=== PATIENT | male | born 1975 | race Caucasian/White ===

== ENCOUNTER 2020-04-18 11:21 | Emergency (ER) | payer SELFPAY ==
[2020-04-18] VITALS (13 sets, daily range): BP systolic 110–135; BP diastolic 66–80; PULSE 57–99; RESP 12–21; TEMP 36.9; O2SAT 96–100; BMI 20.7
--- NOTE | 2020-04-18 11:35 | ED_ITS ---
HPI - General Adult General Chief complaint: Arrhythmia/Palpitations Stated complaint: HEART PALPITATIONS,SHORTNESS OF BREATH Time Seen by Provider: 04/18/20 11:35 History of Present Illness HPI narrative: Otherwise healthy 44-year-old gentleman presents today with increasing palpitations dyspnea and diaphoresis. He states that he has had episodes of palpitations throughout the course of his life initially starting in high school. He has had no official workup for this. He is family history is significant for a father who had a cardiac arrest with subsequent pacer defibrillator. Currently he states he woke up this morning in his usual state of health when to work and while at work had recurrent episodes of heart pounding, palpitations dizziness dyspnea and states that he has never had an episode that is been so severe that lasted so long period He denies chest pain, vomiting, diarrhea, abdominal pain, weakness or neurologic findings, fever or cough. Related Data Previous Rx's Medication Instructions Recorded hydrocortisone 1 % topical ointment 1 applictn TOP BID-QID PRN #28 gram 03/12/18 metoprolol tartrate 25 mg PO BID #60 tab 04/18/20 Allergies Allergy/AdvReac Type Severity Reaction Status Date / Time No Known Drug Allergies Allergy Verified 09/11/19 10:40 Review of Systems Review of Systems Narrative: Remainder of review of systems including constitutional, ENT, cardiovascular, respiratory, GI, , musculoskeletal, skin, neurologic and psychiatric systems reviewed and are unremarkable except as noted in HPI. Patient History Social History Smoking Status: Never smoker alcohol intake: never Smoking Status: Never smoker Exam Narrative Exam Narrative: General: Healthy appearing, mildly anxious, pale but Able to give a complete and coherent history. Well-nourished well-developed HEENT: Moist mucous membranes, normal sclera with reactive pupils, Neck: No JVD, supple Respiratory: Lungs are clear to auscultation, no wheezing no rales no rhonchi. Full and symmetrical air movement Cardiac: Regular rate and rhythm no murmurs no bruits Abdomen: Soft nontender good bowel tones, no flank pain Skin: Warm and dry, no rashes Neurologic: Grossly neurologically intact with no obvious asymmetries or abnormalities Extremities: No trauma, well perfused Psych: Cooperative, appropriate insight and affect Initial Vital Signs Initial Vital Signs: Vital Signs Pulse Rate 99 H 08/24/20 11:25 Blood Pressure 135/80 04/18/20 11:25 Pulse Oximetry 100 04/18/20 11:25 Course Orders Ordered: ED Orders 04/18/20 11:24 EKG-12 Lead Routine 04/18/20 11:30 Complete Blood Count AUTO DIFF Stat Comprehensive Metabolic Panel Stat D Dimer Stat Magnesium Stat Troponin I Stat 04/18/20 12:54 CT angio chest PE protocol Stat Discontinued Medications Sodium Chloride (Normal Saline 0.9%) 1,000 mls @ 1,000 mls/hr IV BOLUS ONE Stop: 04/18/20 12:51 Last Admin: 04/18/20 12:43 Dose: 1,000 mls/hr Documented by: GEO Metoprolol Tartrate (Lopressor) 25 mg PO NOW ONE Stop: 04/18/20 12:56 Last Admin: 04/18/20 13:21 Dose: 25 mg Documented by: GEO Vital Signs Vital signs: Vital Signs - 8 hr 04/18/20 11:25 04/18/20 11:30 04/18/20 11:38 Temperature 98.4 F Pulse Rate 99 H 81 85 Respiratory Rate 12 14 Blood Pressure 135/80 135/80 Pulse Oximetry 100 100 100 04/18/20 12:00 04/18/20 12:30 04/18/20 12:47 Temperature Pulse Rate 77 69 72 Respiratory Rate 12 20 16 Blood Pressure 113/69 Pulse Oximetry 96 96 98 04/18/20 13:00 04/18/20 13:24 04/18/20 13:30 Temperature Pulse Rate 76 74 75 Respiratory Rate 21 Blood Pressure 116/69 120/72 129/78 Pulse Oximetry 97 99 99 04/18/20 14:00 04/18/20 14:30 04/18/20 15:00 Temperature Pulse Rate 63 57 L 59 L Respiratory Rate Blood Pressure 113/66 120/73 110/74 Pulse Oximetry 98 97 97 Medical Decision Making Medical Records Medical records reviewed: Yes I reviewed the patient's medical records. Lab Data Lab results reviewed: Yes I reviewed the patient's lab results. Result diagrams: 04/18/20 11:30 04/18/20 11:30 Labs: Lab Results 04/18/20 04/18/20 04/18/20 Range/Units 11:30 11:30 11:30 WBC 12.1 H (4.5-11.0) X10^3/uL RBC 4.87 (4.5-5.9) X10^6/uL Hgb 14.6 (13.5-17.5) g/dL Hct 42.9 (41-53) % MCV 88.0 (80-100) fL MCH 30.0 (26-34) PG MCHC 34.1 (30-36) % RDW 14.2 (11.6-14.8) % Plt Count 277 (150-400) X10^3/uL Neut % (Auto) 68.6 (50-75) % Lymph % (Auto) 20.7 L (25-40) % [place] % (Auto) 8.8 (3-14) % Eos % (Auto) 1.0 L (2-4) % Baso % (Auto) 0.9 (0-2) % Neut # (Auto) 8300 H (3950-0638) /uL Lymph # (Auto) 2500 (9561-2890) /uL [place] # (Auto) 1100 H (0-900) /uL Eos # (Auto) 100 (0-450) /uL Baso # (Auto) 100 (0-100) /uL D-Dimer 275 H (<230) ng/mL Sodium 140 (137-145) mmol/L Potassium 3.8 (3.4-5.1) mmol/L Chloride 108 H (98-107) mmol/L Carbon Dioxide 23 (22-32) mmol/L BUN 20 (9-20) mg/dL Creatinine 0.73 (0.66-1.25) mg/dL Estimated GFR > 60.0 (>60) mL/min BUN/Creatinine Ratio 27.4 H (6-22) Glucose 110 H (70-100) mg/dL Calcium 10.1 (8.4-10.2) mg/dL Magnesium 2.1 (1.6-2.3) mg/dL Total Bilirubin 0.5 (0.2-1.3) mg/dL AST 20 (17-59) IU/L ALT 8 (<50) IU/L Alkaline Phosphatase 45 (38-126) U/L Troponin I < 0.012 (0.01-0.034) ng/mL Total Protein 7.6 (6.3-8.2) g/dL Albumin 4.6 (3.5-5.0) g/dL Globulin 3.0 (1.7-4.1) g/dL Albumin/Globulin Ratio 1.5 (1.0-2.8) Urine Dip Bedside Urine Glucose Negative Bedside Urine Bilirubin - Negative Bedside Urine Ketone - Negative Urine Specific [place] 1.010 Bedside Urine Occult Blood - Negative Bedside Urine pH 8.0 Bedside Urine Protein - Negative Bedside Urine Urobilinogen - Negative Bedside Urine Nitrite - Negative Bedside Urine Leukocytes - Negative Esterase Point of care testing: Urine Dip Bedside Urine Glucose Negative Bedside Urine Bilirubin - Negative Bedside Urine Ketone - Negative Urine Specific [place] 1.010 Bedside Urine Occult Blood - Negative Bedside Urine pH 8.0 Bedside Urine Protein - Negative Bedside Urine Urobilinogen - Negative Bedside Urine Nitrite - Negative Bedside Urine Leukocytes - Negative Esterase Imaging Data CT scan - chest: Radiologist's Impression: IMPRESSION: No evidence for pulmonary embolism. Dictated by: Macey Zheng M.D. on 04/18/2020 at 13:23 ECG Data Attestation: I personally reviewed and interpreted this ECG as follows: Interpretation: Sinus rhythm at a rate of 86 with normal intervals and normal axis. No acute ischemic changes On telemetry monitoring he is having repeated 12-20 beat runs with the prolonged as needed interval but minimally changed R to R interval. He does describe increased palpitations sensation during this mild rhythm abnormality. 1pm case is reviewed with Cardiology, Dr. Marinelli. He has reviewed the EKGs and believes that this is dual minesh AV physiology and recommends beta-royal for symptomatic control and referral to EP cardiology for consideration of ablation. Remainder of labs are returning a slightly elevated D-dimer. Given the palpitations and tachycardia initially presenting, with shared decision making, will moved to CT PE study to rule out pulmonary embolism PE has been ruled out. His heart rate has calmed nicely after 25 mg of metoprolol Explained findings workup and the dual node AV physiology along with recommended follow-up when he has insurance and metoprolol 25 mg twice a day to control symptoms at this time. 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 This means that in addition to the usual way the top part of your heart communicates with the bottom part of your heart, there is also secondary ?back channel?. This is not a life-threatening rhythm. It can be disconcerting and certainly uncomfortable. Using metoprolol 25 mg morning and night as needed for the palpitations is a reasonable way to deal with the discomfort until your able to get in and talk to an screen printing paster (marketing services coordinator who specializes in electrical conduction of the heart). With the workup today we showed there was no evidence of infection, blood clot in your lungs, significant chest pathology, anemia or any type of acute heart attack or heart attack like syndrome. I hope you feel better Prescriptions: New metoprolol tartrate 25 mg tablet 25 mg PO BID Qty: 60 RF: 6 No Action hydrocortisone [Anti-Itch (HC)] 1 % ointment 1 applictn TOP BID-QID PRN (Reason: rash) Qty: 28 RF: 0
[2020-04-18 12:00] LABS: Add Manual Diff / Slide Review NO; Basophils Absolute Auto 100 /uL (0-100); Basophils Percent Auto 0.9 % (0-2); Eosinophils Absolute Auto 100 /uL (0-450); Hematocrit 42.9 % (41-53); Hemoglobin 14.6 g/dL (13.5-17.5); Lymphocytes Absolute Auto 2500 /uL (1100-4500); Lymphocytes Percent Auto 20.7 % (25-40); Mean Corpuscular HGB Conc 34.1 % (30-36); Monocytes Absolute Auto 1100 /uL (0-900); Monocytes Percent Auto 8.8 % (3-14); Neutrophils Absolute Auto 8300 /uL (1500-7000); Neutrophils Percent Auto 68.6 % (50-75); Platelet Count 277 X10^3/uL (150-400); Red Blood Cell Count 4.87 X10^6/uL (4.5-5.9); Red Cell Distribution Width 14.2 % (11.6-14.8); White Blood Cell Count 12.1 X10^3/uL (4.5-11.0)
[2020-04-18 12:06] LABS: Alanine Aminotransferase 8 IU/L (<50); Albumin 4.6 g/dL (3.5-5.0); Albumin Globulin Ratio 1.5 (1.0-2.8); Alkaline Phosphatase 45 U/L (38-126); Aspartate Aminotransferase 20 IU/L (17-59); BUN Creatinine Ratio 27.4 (6-22); Bilirubin Total 0.5 mg/dL (0.2-1.3); Blood Urea Nitrogen 20 mg/dL (9-20); Calcium 10.1 mg/dL (8.4-10.2); Carbon Dioxide 23 mmol/L (22-32); Chloride 108 mmol/L (98-107); Estimated Glomerular Filt Rate > 60.0 mL/min (>60); Glucose 110 mg/dL (70-100); HEMOLYSIS < 15 (0-50); Magnesium 2.1 mg/dL (1.6-2.3); Potassium 3.8 mmol/L (3.4-5.1); Sodium 140 mmol/L (137-145); Total Protein 7.6 g/dL (6.3-8.2)
[2020-04-18 12:10] LABS: D Dimer 275 ng/mL (<230)
[2020-04-18 12:17] LABS: Troponin I < 0.012 ng/mL (0.01-0.034)
[2020-04-18] MEDS: SODIUM CHLORIDE 0.9% 1,000 ML 1000 ML IV (12:43)
--- NOTE | 2020-04-18 12:54 | DI.CT.S_ITS ---
PROCEDURE: CT ANGIO CHEST PE PROTOCOL INDICATIONS: Elevated D-dimer, palpitations, tachycardia TECHNIQUE: After the administration of intravenous contrast, 2 mm thick sections acquired from the pulmonary apices to the posterior costophrenic angles. 3-dimensional maximum intensity projection (MIP) coronal and sagittal reformats were then acquired through the thorax. For radiation dose reduction, the following was used: automated exposure control, adjustment of mA and/or kV according to patient size. COMPARISON: None. FINDINGS: Image quality: Excellent. Pulmonary arteries: Pulmonary arteries are normal in size, and demonstrate no intraluminal filling defects to suggest central pulmonary embolism. Lungs and pleura: Lungs are clear. No pleural effusions or pneumothorax. Central and peripheral airways are patent. Mediastinum: Heart size is normal, without pericardial effusion. No mediastinal or hilar adenopathy. Thoracic aorta is normal in caliber and enhancement. Esophagus is normal in caliber, without hiatal hernia. Bones and chest wall: No suspicious bony lesions. Ribs and thoracic spine appear intact throughout. Thyroid gland is normal. No axillary or supraclavicular adenopathy. Abdomen: Visualized upper abdominal solid organs appear normal in the early arterial phase of enhancement. IMPRESSION: No evidence for pulmonary embolism. Dictated by: Macey Zheng M.D. on 04/18/2020 at 13:23 Approved by: Macey Zheng M.D. on 04/18/2020 at 13:33
[2020-04-18] MEDS: METOPROLOL IR 25 MG TABLET PO (13:21)
== END 2020-04-18 16:08 | disposition home or self-care (01) ==
PROVIDERS: Emergency Provider Emergency Medicine
DX: R00.2 Palpitations (principal); R06.00 Dyspnea, unspecified; R79.89 Other specified abnormal findings of blood chemistry
CPT/HCPCS: 36415; 71275; 80053; 81003; 83735; 84484; 85025; 85379; 93005; 99284; Q9967

== ENCOUNTER 2022-04-17 07:50 | Emergency (ER) | payer OTHER, SELFPAY ==
[2022-04-17 08:11] VITALS: BP 116/63; PULSE 59; RESP 18; TEMP 36.7; O2SAT 98; BMI 22.2
--- NOTE | 2022-04-17 08:30 | ED_ITS ---
HPI - Extremity Problem General Chief complaint: Extremity Problem,Nontraumatic Stated complaint: top of left foot numb x 1 week Time Seen by Provider: 04/17/22 08:25 Source: patient Mode of arrival: Ambulatory Limitations: no limitations History of Present Illness HPI Narrative: This is a 46-year-old male history of atrial fibrillation on metoprolol and no anticoagulation. Patient presents today with numbness over the dorsum of his left foot for approximately 1 week. Patient states he has not had issues like this in the past. He does not appreciate any weakness. He feels a little bit of tightness in the muscle in the anterior arevalo. He states he was wearing boots at work regularly but states he is switched over to shoes. He states he does have a physical job. He states he was part of a cancer walk several days ago but the numbness actually started before. He has not appreciate any difficulty with ambulation or foot drop. Patient states he has not had any sensation changes elsewhere. He denies headaches, no fevers or chills, no cold cough or congestion, no chest pain or shortness of breath, no nausea or vomiting, no saddle anesthesia, no bowel or bladder incontinence or diarrhea constipation. Denies any numbness, tingling or weakness elsewhere, no difficulties with speech, no facial droop or other changes appreciated. Has not had similar symptoms in the past. He denies any major surgeries. No tobacco occasional alcohol, uses THC sometimes. Currently in between primary care physicians and has not been able to establish an appointment until July. Related Data Previous Rx's Medication Instructions Recorded metoprolol tartrate 25 mg tablet 25 mg PO BID #60 tabs 04/18/20 Allergies Allergy/AdvReac Type Severity Reaction Status Date / Time No Known Drug Allergies Allergy Verified 04/09/22 13:49 Review of Systems Review of Systems ROS Unobtainable: All systems reviewed & are unremarkable except as noted in HPI and below Patient History Medical History Ocular migraine Social History Smoking Status: Never smoker alcohol intake: never Smoking Status: Never smoker alcohol intake frequency: 0-2 drinks per day Substance Use Type: marijuana Exam Narrative Exam Narrative: GEN: well nourished, well appearing male, alert and oriented x 3, patient appear s to be in mild distress. HEENT: Atraumatic, pupils are equal round reactive to light, extraocular m ovements are intact, nares are clear, moist mucous membranes, no facial droop. HEART: Regular rate and rhythm without murmur, clicks, rubs. pulses are equal in bilateral lower extremities LUNGS:Lungs clear to auscultation, no wheezes, rales, crackles, chest moves symmetrically ABD:bowel sounds normal, soft, non-tender, no guarding, rebound, rigidity, no masses noted, no hepatosplenomegaly :No CVA tenderness MSCL: Non-tender, no muscle atrophy, muscles strength 5/5 upper and lower extremities, full range of motion, normal gait. No swelling. Nontender to touch. NEURO:CN 2-12 intact, sensation normal with decreased but present sensation over L4/L5/S1 dermatomes on dorsum of foot but present on plantar portion of foot. Reflexes 2/4 upper and lower extremities. finger nose finger test normal, heel arevalo test normal SKIN: No rash, erythema or other skin changes noted. Initial Vital Signs Initial Vital Signs: Vital Signs Temperature 98.1 F 04/17/22 08:11 Pulse Rate 59 L 04/17/22 08:11 Respiratory Rate 18 04/17/22 08:11 Blood Pressure 116/63 04/17/22 08:11 Pulse Oximetry 98 04/17/22 08:11 Oxygen Delivery Method 04/17/22 08:11 Scores CHADS-VASc Congestive heart failure: no Hypertension: no Age 75 years or older: no Diabetes mellitus: no Stroke, TIA, or TE: no Vascular disease: no Age 65 to 74 years: no Sex category (female): Male CHADS-VASc Score: 0 Course Orders Ordered: ED Orders 04/17/22 09:09 BMP [Basic Metabolic Panel] Stat CBC Auto Diff [Complete Blood Count AUTO DIFF] Stat Hemoglobin A1C% w Est Avg Glu Stat Vital Signs Vital signs: Vital Signs - 8 hr 04/17/22 08:11 Temperature 98.1 F Pulse Rate 59 L Respiratory Rate 18 Blood Pressure 116/63 Pulse Oximetry 98 Oxygen Delivery Method Room Air MDM - Extremity (Nontraumatic) Lab Data Result diagrams: 04/17/22 09:09 04/17/22 09:09 Labs: Lab Results 08/04/17/22 04/17/22 Range/Units 09:09 09:09 09:09 WBC 7.0 (4.5-11.0) X10^3/uL RBC 4.48 L (4.5-5.9) X10^6/uL Hgb 13.3 L (13.5-17.5) g/dL Hct 39.1 L (41-53) % MCV 87.3 (80-100) fL MCH 29.8 (26-34) PG MCHC 34.1 (30-36) % RDW 14.3 (11.6-14.8) % Plt Count 264 (150-400) X10^3/uL Neut % (Auto) 63.0 (50-75) % Lymph % (Auto) 23.6 L (25-40) % [place] % (Auto) 10.6 (3-14) % Eos % (Auto) 2.0 (2-4) % Baso % (Auto) 0.8 (0-2) % Neut # (Auto) 4400 (4058-5385) /uL Lymph # (Auto) 1700 (1617-8173) /uL [place] # (Auto) 700 (0-900) /uL Eos # (Auto) 100 (0-450) /uL Baso # (Auto) 100 (0-100) /uL Sodium 140 (137-145) mmol/L Potassium 4.3 (3.4-5.1) mmol/L Chloride 107 (98-107) mmol/L Carbon Dioxide 28 (22-32) mmol/L BUN 8 L (9-20) mg/dL Creatinine 0.70 (0.66-1.25) mg/dL Estimated GFR > 60 (>60) mL/min BUN/Creatinine Ratio 11.4 (6-22) Glucose 98 (70-100) mg/dL Hemoglobin A1c 5.5 (4.0-6.0) % Calcium 8.6 (8.4-10.2) mg/dL [facility] Narrative Medical decision making narrative: This is a 46-year-old male with complaint of paresthesia over the dorsum of his left foot x1 week with no other acute neurologic changes. Patient does not have any other clear neurologic cause, he does not have any active back pain making lumbar radiculopathy less likely, no cauda equina type symptoms, he has not had any recent injury that he is aware of, labs including hemoglobin A1c were included do not show any acute changes or causes. Plan for patient to follow up with primary care for recheck and further workup. We did discuss if he has any other new or acute neurologic changes to return for re-evaluation he does have a history of atrial fibrillation. He currently takes metoprolol as needed but is not anticoagulated and based on his CHADS-VASC score patient is appropriate for aspirin therapy. All questions answered return precautions discussed. Discharge Plan Departure Patient Disposition: Home Clinical Impression: Peripheral neuropathy Instructions: DI for Peripheral Neuropathy Activity Restrictions/Additional Instructions: I suspect that you have developed some peripheral neuropathy this can occur for a variety of reasons. Please follow-up with primary care for recheck they may do some additional testing in the future if this is persisting and a clear cause has not been found including EMG or other workup. Your labs show a very mild anemia but no other major changes today. Make sure you are not wearing any restrictive clothing or items that would cause compression over the nerves, if you develop pain in her back or if the numbness is spreading up your leg this may be related to her back and nerve impingement in this location. With your history of atrial fibrillation would recommend at least an aspirin daily as this does increase your risk of stroke. Please return for new or worsening symptoms increasing weakness, numbness, loss sensation that is changing location, new difficulties with speech, changes of numbness weakness in your extremities, loss of bowel or bladder control, severe headaches or other new or concerning symptoms. Prescriptions: No Action metoprolol tartrate 25 mg tablet 25 mg PO BID Qty: 60 6RF Referrals: Elijah Tolliver DO [Primary Care Provider] - Visit Report Forms: Patient Portal/API
[2022-04-17 09:17] LABS: Add Manual Diff / Slide Review NO; Basophils Absolute Auto 100 /uL (0-100); Basophils Percent Auto 0.8 % (0-2); Eosinophils Absolute Auto 100 /uL (0-450); Hematocrit 39.1 % (41-53); Hemoglobin 13.3 g/dL (13.5-17.5); Lymphocytes Absolute Auto 1700 /uL (1100-4500); Lymphocytes Percent Auto 23.6 % (25-40); Mean Corpuscular HGB Conc 34.1 % (30-36); Mean Corpuscular Hemoglobin 29.8 PG (26-34); Mean Corpuscular Volume 87.3 fL (80-100); Monocytes Absolute Auto 700 /uL (0-900); Monocytes Percent Auto 10.6 % (3-14); Neutrophils Absolute Auto 4400 /uL (1500-7000); Platelet Count 264 X10^3/uL (150-400); Red Blood Cell Count 4.48 X10^6/uL (4.5-5.9); Red Cell Distribution Width 14.3 % (11.6-14.8)
[2022-04-17 09:31] LABS: Hemoglobin A1C% w Est Avg Glu 5.5 % (4.0-6.0)
[2022-04-17 09:33] LABS: BUN Creatinine Ratio 11.4 (6-22); Blood Urea Nitrogen 8 mg/dL (9-20); Calcium 8.6 mg/dL (8.4-10.2); Carbon Dioxide 28 mmol/L (22-32); Chloride 107 mmol/L (98-107); Estimated Glomerular Filt Rate > 60 mL/min (>60); Glucose 98 mg/dL (70-100); HEMOLYSIS < 15 (0-50); Potassium 4.3 mmol/L (3.4-5.1); Sodium 140 mmol/L (137-145)
[2022-04-17 10:00] VITALS: BP 125/79; PULSE 64; O2SAT 96
== END 2022-04-17 10:00 | disposition home or self-care (01) ==
PROVIDERS: Emergency Provider Emergency Medicine; PCP Family Medicine
DX: G62.9 Polyneuropathy, unspecified (principal)
CPT/HCPCS: 36415; 80048; 83036; 85025; 99281; 99283

== ENCOUNTER → 2024-12-16 13:44 | Outpatient (CLI) | payer BC, SELFPAY | PROVIDERS: PCP Family Medicine; Referring Provider Family Medicine; Visit Provider Family Medicine | DX: I49.9 Cardiac arrhythmia, unspecified (principal) | CPT/HCPCS: 93246; 93248 ==

== ENCOUNTER → 2024-12-28 06:58 | Outpatient (CLI) | payer BC, SELFPAY ==
--- NOTE | 2024-12-28 06:58 | DI.ECHO.S_ITS ---
[facility] : : [address] : : [place] : : [address] : : Phone: [phone] Echocardiogram Report + + :Name: GLORIA REN Study Date: 12/28/2024 Height: 71 in : :Hospital ReadingLocation: Weight: 150 lb : : Gender: Male BSA: 1.9 m2 : :: 1975 Age: 49 yrs BP: 106/61 mmHg: :Reason For Study: CARDIAC ARRHYTHMIA : :Ordering Physician: LASHON, : :TOSHIA Cuellar Performed By: Jacquie Delaney : :Referring: TOSHIA OATES R : + + Interpretation Summary The patient was in sinus bradycardia with heart rates between 45-56 bpm during the exam. The ejection fraction is estimated to be 55-60%. Diastolic parameters suggest probable normal left ventricular diastolic function and normal filling pressures. The right ventricle is normal in size and function. There is mild mitral regurgitation. There is mild tricuspid regurgitation. Pulmonary artery pressures cannot be estimated because of the lack of a measurable TR jet velocity but the IVC suggests a CVP of around 3 mmHg. Procedure: A two-dimensional transthoracic echocardiogram with color flow and Doppler was performed. The study quality was technically adequate. There is no prior echocardiogram noted for this patient. The patient was in sinus bradycardia with heart rates between 45-56 bpm during the exam. Left Ventricle: The left ventricle is normal in size and wall thickness. The ejection fraction is estimated to be 55-60%. Diastolic parameters suggest probable normal left ventricular diastolic function and normal filling pressures. Right Ventricle: The right ventricle is normal in size and function. Atria: The left atrial size is normal. Right atrial size is normal. There is no Doppler evidence for an interatrial shunt. Mitral Valve: The mitral valve leaflets appear borderline thickened, but open well. There is mild mitral regurgitation. Aortic Valve: The aortic valve is trileaflet. The aortic valve opens well. There is no aortic valve stenosis. No aortic regurgitation is present. Tricuspid Valve: The tricuspid valve leaflets are thin and pliable. There is mild tricuspid regurgitation. Pulmonary artery pressures cannot be estimated because of the lack of a measurable TR jet velocity but the IVC suggests a CVP of around 3 mmHg. Pulmonic Valve: The pulmonic valve is not well seen, but is grossly normal. There is no pulmonic valvular regurgitation. Great Vessels: The aortic root is normal size. The ascending aorta could not be visualized. The IVC is of normal diameter and collapses greater than 50% with a sniff. This suggests a low right atrial pressure of 3 mm Hg. Pericardium/ Pleura There is no pericardial effusion. There is no pleural effusion. MMode/2D Measurements & Calculations LVIDd: 5.2 cm LVOT diam: 2.2 cm LVIDs: 3.7 cm Ao root diam: 3.4 cm FS: 29.2 % Ao Arch Diam (Prox Trans): 2.8 cm EPSS: 0.49 cm IVSd: 0.58 cm LVPWd: 0.80 cm LV garcia. diameter/BSA (cm/m^2): 2.8 LV sys. diameter/BSA (cm/m^2): 2.0 LA A2 area: 18.6 cm2 RA long axis: 4.4 cm LA A4 area: 14.5 cm2 RA area: 14.9 cm2 LA length (vol): 4.2 cm RA vol: 43.1 ml LA vol: 55.1 ml RA : 23.1 ml/m2 LA vol index: 29.5 ml/m2 IVC diam: 1.6 cm RVD1 (basal): 3.4 cm RVD2 (mid): 2.8 cm TAPSE: 1.8 cm Doppler Measurements & Calculations Ao V2 max: 133.2 cm/sec LVOT Max Jone: 104.5 cm/sec Ao V2 mean: 89.6 cm/sec LV V1 max P.4 mmHg Ao max P.1 mmHg LV V1 VTI: 23.7 cm Ao mean P.7 mmHg BRENT(I,D): 2.7 cm2 Ao V2 VTI: 32.7 cm BRENT(V,D): 2.9 cm2 sev ratio: 0.72 BRENT indexed to BSA (cm^2/m^2): 1.4 MV E max jone: 84.3 cm/sec TR max jone: 208.5 cm/sec MV A max jone: 57.8 cm/sec TR max P.4 mmHg MV E/A: 1.5 PA V2 max: 88.9 cm/sec Med Peak E' Jone: 10.8 cm/sec PA V2 mean: 62.8 cm/sec E/E' med: 7.8 PA mean P.8 mmHg Lat Peak E' Jone: 15.2 cm/sec PA pr(Accel): 27.6 mmHg E/E' lat: 5.5 E/e' average: 6.7 MV dec time: 0.15 sec SV(LVOT): 87.5 ml Reading Physician:03:37 PM
== END ==
LOC: ECHO 06:58
PROVIDERS: PCP Family Medicine; Referring Provider Family Medicine; Visit Provider Family Medicine
DX: I08.1 Rheumatic disorders of both mitral and tricuspid valves (principal); I49.9 Cardiac arrhythmia, unspecified
CPT/HCPCS: 93306

== ENCOUNTER → 2025-02-08 09:15 | Outpatient (CLI) | payer BC, SELFPAY ==
[2025-02-08 10:06] LABS: Add Manual Diff / Slide Review NO; Basophils Absolute Auto 100 /uL (0-100); Basophils Percent Auto 1.1 % (0-2); Eosinophils Absolute Auto 200 /uL (0-450); Eosinophils Percent Auto 3.6 % (2-4); Hematocrit 39.8 % (41-53); Hemoglobin 13.7 g/dL (13.5-17.5); Lymphocytes Absolute Auto 1800 /uL (1100-4500); Lymphocytes Percent Auto 30.5 % (25-40); Mean Corpuscular HGB Conc 34.4 % (30-36); Mean Corpuscular Hemoglobin 30.4 PG (26-34); Mean Corpuscular Volume 88.4 fL (80-100); Monocytes Absolute Auto 600 /uL (0-900); Monocytes Percent Auto 10.4 % (3-14); Neutrophils Absolute Auto 3200 /uL (1500-7000); Neutrophils Percent Auto 54.4 % (50-75); Platelet Count 307 X10^3/uL (150-400); Red Cell Distribution Width 14.2 % (11.6-14.8); White Blood Cell Count 5.9 X10^3/uL (4.5-11.0)
[2025-02-08 10:28] LABS: Alanine Aminotransferase 9 IU/L (<50); Albumin 4.5 g/dL (3.5-5.0); Albumin Globulin Ratio 1.7 (1.0-2.8); Alkaline Phosphatase 40 U/L (38-126); Aspartate Aminotransferase 20 IU/L (17-59); Bilirubin Total 0.7 mg/dL (0.2-1.3); Blood Urea Nitrogen 17 mg/dL (9-20); Calcium 9.3 mg/dL (8.4-10.2); Carbon Dioxide 26 mmol/L (22-32); Chloride 104 mmol/L (98-107); Cholesterol 182 mg/dL (140-199); Estimated Glomerular Filt Rate > 60 mL/min (>60); Globulin 2.7 g/dL (1.7-4.1); Glucose 104 mg/dL (70-99); HDL Cholesterol 56 mg/dL (40-60); HEMOLYSIS < 15 (0-50); LDL Cholesterol Calculated 115 mg/dL (<100); Sodium 137 mmol/L (137-145); Total Protein 7.2 g/dL (6.3-8.2); Triglycerides 56 mg/dL (35-150)
[2025-02-08 11:01] LABS: TSH w/ Reflex to FT4 0.92 uIU/mL (0.47-4.68)
== END ==
PROVIDERS: PCP Family Medicine; Referring Provider Family Medicine; Visit Provider Family Medicine
DX: I49.9 Cardiac arrhythmia, unspecified (principal); G47.30 Sleep apnea, unspecified; Z13.6 Encounter for screening for cardiovascular disorders
CPT/HCPCS: 36415; 80053; 80061; 84443; 85025

== ENCOUNTER 2025-03-25 12:04 | Emergency (ER) | payer OTHER, SELFPAY ==
[2025-03-25] VITALS (8 sets, daily range): BP systolic 100–117; BP diastolic 53–69; PULSE 59–70; RESP 13–22; TEMP 36.4; O2SAT 97–99; BMI 20.2
--- NOTE | 2025-03-25 12:33 | DI.RAD.S_ITS ---
PROCEDURE: XR CHEST 1V INDICATIONS: Chest Pain TECHNIQUE: One view of the chest was acquired. COMPARISON: None. FINDINGS: Surgical changes and devices: None. Lungs and pleura: Lungs are clear. No pleural effusions or pneumothorax. Mediastinum: Mediastinal contours appear normal. Heart size is normal. Bones and chest wall: No suspicious bony lesions. Overlying soft tissues appear unremarkable. IMPRESSION: No acute cardiopulmonary pathology. Dictated by: Dawson Grey M.D. on 03/25/2025 at 13:43 Approved by: Dawson Grey M.D. on 03/25/2025 at 13:43
--- NOTE | 2025-03-25 12:33 | EKG_ITS ---
[address] [address] Test Date: 2025-03-25 Pat Name: Jared Brasher Department: Room: Gender: Male [employer]ist [employer]: : 1975 Requested By: Order Number: [id number] Reading MD: Sarthak Brasher Measurements Intervals [place] Rate: 60 P: 79 NC: 188 QRS: 87 QRSD: 92 T: 77 QT: 412 QTc: 412 Interpretive Statements Normal sinus rhythm Electronically Signed On 04-02-2025 13:54:15 PDT by Sarthak Brasher
[2025-03-25] MEDS: ASPIRIN 81 MG CHEW TAB 324 MG PO (12:39)
[2025-03-25 12:49] LABS: Add Manual Diff / Slide Review NO; Hematocrit 39.5 % (41-53); Hemoglobin 13.5 g/dL (13.5-17.5); Lymphocytes Absolute Auto 2700 /uL (1100-4500); Mean Corpuscular HGB Conc 34.2 % (30-36); Mean Corpuscular Hemoglobin 30.0 PG (26-34); Mean Corpuscular Volume 87.9 fL (80-100); Platelet Count 271 X10^3/uL (150-400)
[2025-03-25 13:03] LABS: INR 1.0 (0.9-1.3); Prothrombin Time 10.8 SECONDS (9.4-12.5)
[2025-03-25 13:05] LABS: Alanine Aminotransferase 9 IU/L (<50); Albumin 4.6 g/dL (3.5-5.0); Albumin Globulin Ratio 1.6 (1.0-2.8); Alkaline Phosphatase 44 U/L (38-126); Blood Urea Nitrogen 14 mg/dL (9-20); Calcium 9.5 mg/dL (8.4-10.2); Carbon Dioxide 22 mmol/L (22-32); Chloride 107 mmol/L (98-107); Creatine Kinase 70 U/L (55-170); Estimated Glomerular Filt Rate > 60 mL/min (>60); Globulin 2.9 g/dL (1.7-4.1); Glucose 92 mg/dL (70-99); HEMOLYSIS < 15 (0-50); Lipase 98 U/L (23-300); Magnesium 2.1 mg/dL (1.6-2.3); PTT Partial Thromboplastin Tim 31 SECONDS (25.1-36.5); Potassium 4.1 mmol/L (3.4-5.1); Sodium 139 mmol/L (137-145); Total Protein 7.5 g/dL (6.3-8.2)
[2025-03-25 13:16] LABS: NT-proBNP (BNP-Adult 18+) 238 pg/mL (<125); Troponin I < 0.012 ng/mL (0.01-0.034)
[2025-03-25 15:20] LABS: Troponin I < 0.012 ng/mL (0.01-0.034)
--- NOTE | 2025-03-25 15:57 | ED.ARRPALP ---
HPI - Arrhythmia/Palpitations General Chief Complaint: Arrhythmia/Palpitations Stated Complaint: SOB , Dizzy sent from [facility] Time Seen by Provider: 03/25/25 15:46 Source: patient Mode of arrival: Wheelchair History of Present Illness HPI narrative: Patient here is status post ablation [facility] last with Dr. Chandler, had palpitations the following few days. Still not improving. Today had palpitations at work. [place] dizzy and short of breath. No chest pain. Patient is on metoprolol after the procedure. No exertional chest pain or shortness of breath. Vital signs are reassuring. Patient had ablation for SVT. Related Data Home Medications ?Medication ?Instructions ?Recorded ?Confirmed metoprolol tartrate 25 mg tablet 25 mg PO ONCE PRN 12/04/24 02/08/25 Previous Rx's ?Medication ?Instructions ?Recorded sumatriptan succinate 50 mg tablet See Rx Instructions PO .COMPLEX 12/04/24 #10 tabs triamcinolone acetonide 0.1 % 1 applic topical BID #15 grams 12/04/24 topical cream Allergies Allergy/AdvReac Type Severity Reaction Status Date / Time No Known Drug Allergies Allergy Verified 03/25/25 12:26 Review of Systems Review of Systems Narrative: GENERAL: Negative chills, fatigue, malaise, fever, sweats. HEENT: Negative sinus pain, ear pain, sore throat RESPIRATORY: Positive dyspnea, negative cough CARDIOVASCULAR: Negative chest pain, positive palpitations GASTROINTESTINAL: Negative vomiting, nausea, abdominal pain : Negative dysuria, frequency, hematuria MUSCULOSKELETAL: Negative muscle or bony pain SKIN: Negative rash, skin lesions NEUROLOGIC: Negative weakness, numbness, positive dizziness ROS Unobtainable: All systems reviewed & are unremarkable except as noted in HPI and below Patient History Medical History (Updated 03/25/25 @ 18:17 by Lele Markham MD) Eczema (~1995) Headache (~1983) Atrial fibrillation Ocular migraine (~1983) Surgical History (Updated 01/01/25 @ 20:22 by Lela Goel) [place] teeth removed (~2010) Family History (Updated 01/01/25 @ 20:24 by Lela Goel) Father Cancer Diabetes mellitus History of heart disease Hypertension Mental health problem Mother Cancer Grandmother Mental health problem Social History Smoking Status: Former smoker alcohol intake: never Smoking Status: Former smoker alcohol intake frequency: 0-2 drinks per day Exam Narrative Exam Narrative: GENERAL: in no distress, not toxic not dyspneic HEAD: Normocephalic. EYES: Pupils equal round ENT: Mucous membranes moist. NECK: Trachea midline. CARDIOVASCULAR: Regular rate and rhythm RESPIRATORY: Clear to auscultation. Breath sounds equal bilaterally. No wheezes, rales, or rhonchi. GASTROINTESTINAL: Abdomen soft, non-tender EXTREMITIES: No gross deformities. BACK: No flank tenderness. NEURO: AOx4. Clear speech SKIN: Warm and dry PSYCH: Not anxious, is cooperative Initial Vital Signs Initial Vital Signs: Vital Signs Temperature 97.6 F 03/25/25 12:25 Pulse Rate 64 03/25/25 12:25 Respiratory Rate 20 03/25/25 12:25 Blood Pressure 114/69 03/25/25 12:25 Pulse Oximetry 99 03/25/25 12:25 Oxygen Delivery Method Room Air 03/25/25 12:25 Course Orders Ordered: ED Orders 03/25/25 12:33 XR chest 1V Stat EKG-12 Lead Stat 03/25/25 12:40 Complete Blood Count AUTO DIFF Stat Comprehensive Metabolic Panel Stat Lipase Stat Magnesium Stat NT-proBNP (BNP-Adult 18+) Stat PTT Partial Thromboplastin Micah Stat Prothrombin Time INR Stat Troponin & CK Cardiac Panel Stat 03/25/25 14:48 Troponin I Stat Discontinued Medications Aspirin (Aspirin 81 Mg Chew Tab) 324 mg PO NOW ONE Stop: 03/25/25 12:34 Last Admin: 03/25/25 12:39 Dose: 324 mg Documented By: JOAQUIM Vital Signs Vital signs: Vital Signs - 8 hr 03/25/25 12:25 03/25/25 15:24 03/25/25 15:24 Temperature 97.6 F Pulse Rate 64 65 Respiratory Rate 20 Blood Pressure 114/69 111/53 L Pulse Oximetry 99 98 Oxygen Delivery Method Room Air 03/25/25 15:30 03/25/25 15:30 03/25/25 16:00 Temperature Pulse Rate 60 Respiratory Rate 13 Blood Pressure 105/56 L 117/64 Pulse Oximetry 98 Oxygen Delivery Method 03/25/25 16:00 03/25/25 16:30 03/25/25 16:30 Temperature Pulse Rate 60 59 L Respiratory Rate 22 19 Blood Pressure 100/58 L Pulse Oximetry 99 98 Oxygen Delivery Method 03/25/25 17:00 03/25/25 17:30 03/25/25 17:30 Temperature Pulse Rate 64 70 Respiratory Rate 17 Blood Pressure 104/57 L Pulse Oximetry 97 97 Oxygen Delivery Method 03/25/25 18:00 03/25/25 18:00 Temperature Pulse Rate 67 Respiratory Rate 19 Blood Pressure 109/63 Pulse Oximetry 98 Oxygen Delivery Method Room Air MDM - Arrhythmia/Palpitations Lab Data 03/25/25 12:40 03/25/25 12:40 Labs: Lab Results 03/25/25 03/25/25 Range/Units 12:40 14:48 WBC 8.8 (4.5-11.0) X10^3/uL RBC 4.50 (4.5-5.9) X10^6/uL Hgb 13.5 (13.5-17.5) g/dL Hct 39.5 L (41-53) % MCV 87.9 (80-100) fL MCH 30.0 (26-34) PG MCHC 34.2 (30-36) % RDW 14.3 (11.6-14.8) % Plt Count 271 (150-400) X10^3/uL Neut % (Auto) 55.4 (50-75) % Lymph % (Auto) 30.9 (25-40) % [place] % (Auto) 10.2 (3-14) % Eos % (Auto) 2.5 (2-4) % Baso % (Auto) 1.0 (0-2) % Neut # (Auto) 4900 (7056-2656) /uL Lymph # (Auto) 2700 (7913-5133) /uL [place] # (Auto) 900 (0-900) /uL Eos # (Auto) 200 (0-450) /uL Baso # (Auto) 100 (0-100) /uL PT 10.8 (9.4-12.5) SECONDS INR 1.0 (0.9-1.3) APTT 31 (25.1-36.5) SECONDS Sodium 139 (137-145) mmol/L Potassium 4.1 (3.4-5.1) mmol/L Chloride 107 (98-107) mmol/L Carbon Dioxide 22 (22-32) mmol/L BUN 14 (9-20) mg/dL Creatinine 0.69 (0.66-1.25) mg/dL Estimated GFR > 60 (>60) mL/min BUN/Creatinine Ratio 20.3 (6-22) Glucose 92 (70-99) mg/dL Calcium 9.5 (8.4-10.2) mg/dL Magnesium 2.1 (1.6-2.3) mg/dL Total Bilirubin 0.3 (0.2-1.3) mg/dL AST 19 (17-59) IU/L ALT 9 (<50) IU/L Alkaline Phosphatase 44 (38-126) U/L Total Creatine Kinase 70 (55-170) U/L Troponin I < 0.012 < 0.012 (0.01-0.034) ng/mL NT-Pro-B Natriuret Pep 238 H (<125) pg/mL Total Protein 7.5 (6.3-8.2) g/dL Albumin 4.6 (3.5-5.0) g/dL Globulin 2.9 (1.7-4.1) g/dL Albumin/Globulin Ratio 1.6 (1.0-2.8) Lipase 98 (23-300) U/L Imaging Data Chest x-ray: Radiologist's Impresson: [place] [address] XRay Report Signed Patient: Jared Brasher MR#: [id number] : 1975 Acct:[id number] Age/Sex: 49 / M Date of Service: 03/25/25 Loc: ED Accession Number: [id number] Procedure: XR chest 1V Ordering Provider: Lele Markham MD PROCEDURE: XR CHEST 1V INDICATIONS: Chest Pain TECHNIQUE: One view of the chest was acquired. COMPARISON: None. FINDINGS: Surgical changes and devices: None. Lungs and pleura: Lungs are clear. No pleural effusions or pneumothorax. Mediastinum: Mediastinal contours appear normal. Heart size is normal. Bones and chest wall: No suspicious bony lesions. Overlying soft tissues appear unremarkable. IMPRESSION: No acute cardiopulmonary pathology. Dictated by: Dawson Grey M.D. on 03/25/2025 at 13:43 Approved by: Dawson Grey M.D. on 03/25/2025 at 13:43 [facility] Narrative Medical decision making narrative: Patient here is status post ablation [facility] last with Dr. Chandler, had palpitations the following few days. Still not improving. Today had palpitations at work. [place] dizzy and short of breath. No chest pain. Patient is on metoprolol after the procedure. No exertional chest pain or shortness of breath. Vital signs are reassuring. Patient had ablation for SVT. MDM After history and exam, CBC CMP troponin chest x-ray EKG Differential considered: Includes but not limited to SVT atrial fibrillation atrial flutter Medical records reviewed: No recent visit for this complaint Lab Test results independently reviewed as above. Pertinent findings: WBC 8.8 hemoglobin 13.5 sodium 139 potassium 4.1 BUN 14 creatinine 0.69 magnesium 2.1 calcium 9.5 troponin less than 0.012 BNP 238 Independently reviewed EKG normal sinus rhythm normal EKG rate 60 Imaging studies independently reviewed: Chest x-ray no acute finding Consultations: 6:00 p.m.. I spoke with Dr. Armendariz, [facility] director inbound sales , he has reviewed patient's medical records from [facility]. He states patient should be on 37.5 mg of metoprolol twice a day. He was supposed to be on 25 mg twice a day according to the chart. Re-evaluations: 6:15 p.m.. I spoke with patient results again and also now my discussion with Dr. Armendariz. Patient states he is not on 25 mg metoprolol twice a day. He is actually taking it as needed. He did take the metoprolol today after his palpitations started. And he has been symptom-free since then. He agrees he will take metoprolol 25 mg daily. Work note provided. Return precautions reviewed. Again he never had chest pain. He desires discharge home. Discussion: Appropriate for discharge home. Exam is reassuring laboratory studies reassuring no arrhythmias during course of stay. Return precautions reviewed. Cardiology service was contacted. He desires discharge home. Diagnosis: Palpitations Discharge Plan Departure Patient Disposition: Home Clinical Impression: Palpitations Instructions: DI for Arrhythmias Activity Restrictions/Additional Instructions: Your exam and laboratory studies are reassuring. Please take your metoprolol 25 mg once a day. Please inform your director inbound sales that you are taking it daily instead a PRN/as needed. Return if worse if any questions or concerns Prescriptions: No Action metoprolol tartrate 25 mg tablet 25 mg PO ONCE PRN sumatriptan succinate 50 mg tablet See Rx Instructions PO .COMPLEX Qty: 10 0RF Rx Instructions: take 1 tab at onset of headache; if no relief may repeat 1 tab after at least 2 hrs; max = 4 tabs/24 hr PO triamcinolone acetonide 0.1 % cream 1 applic topical BID Qty: 15 3RF Referrals: Lorraine Pichardo MD [Primary Care Provider, Family Practice] Stand Alone Forms: Patient Portal/API, Work Release Note
== END 2025-03-25 18:26 | disposition home or self-care (01) ==
PROVIDERS: Emergency Provider Emergency Medicine; PCP Family Medicine
DX: R00.2 Palpitations (principal); R06.00 Dyspnea, unspecified; R07.9 Chest pain, unspecified; Z86.79 Personal history of other diseases of the circulatory system
CPT/HCPCS: 36415; 71045; 80053; 82550; 83690; 83735; 83880; 84484; 85025; 85610; 85730; 93005; 99284